=== PATIENT | male | born 1990 | race Caucasian/White ===

== ENCOUNTER 2018-01-23 12:12 | Emergency (ER) | payer SELFPAY ==
[2018-01-23] MEDS ORDERED: NS 1,000 ML IV ONE (12:36)
--- NOTE | 2018-01-23 12:36 | EDPHY ---
H & P Stated Complaint: meth ingestion Time Seen by Provider: 01/23/18 12:31 HPI/ROS: HPI: This is a 27-year-old male who presents with Chief Complaint: Meth ingestion Location: Body Quality: Meth ingestion Duration: Prior to arrival Signs and Symptoms: no shortness of breath at rest, no shortness of breath on exertion, no cough, no chest pain, no palpitations, no lower extremity edema, no wheezing, no orthopnea, no paroxysmal nocturnal dyspnea, no fever, no injury/ trauma, no hemoptysis, no carpal pedal spasms Timing: Acute Severity: Moderate Context: Patient was running from the police, when he opened up a bag of meth and ingested the medication. He reports that he did not eat the plastic bag or swallow the bag. He is unsure of how much methamphetamine he consumed. Police are at bedside with requesting medical clearance. Patient reports that he has no physical complaints at this time. Modifying Factors: None Comment: ROS: A comprehensive 10 system review of systems is otherwise negative aside from elements mentioned in the history of present illness. MEDICAL/SURGICAL/SOCIAL HISTORY: Medical history: Generally healthy. Does not take any regular medications. Surgical history: Denies Social history: Transient, methamphetamine use, tobacco user CONSTITUTIONAL: Intoxicated but cooperative, young adult white male, awake and alert, no obvious distress HEENT: Atraumatic and normocephalic, PERRL, EOMI. Nares patent; no rhinorrhea; no nasal mucosal edema. Tympanic membranes clear. Oropharynx clear, no exudate and moist pink mucosa. Airway patent. No lymphadenopathy. No meningismus. Cardiovascular: Normal S1/S2, tachycardia, regular rhythm, without murmur rub or gallop. PULMONARY/CHEST: Symmetrical and nontender. Clear to auscultation bilaterally. Good air movement. No accessory muscle usage. ABDOMEN: Soft, nondistended, nontender, no rebound, no guarding, no peritoneal signs, no masses or organomegaly. No CVAT. EXTREMITIES: 2/2 pulses, strength 5/5, no deformities, no clubbing, no cyanosis or edema. NEUROLOGICAL: no focal neuro deficits. GCS 15. Speech somewhat slurred. Follows 2 step commands. SKIN: Warm and dry, tattoos covering body, no erythema. no rash. Good capillary refill. Source: Patient, EMS Exam Limitations: No limitations - Personal History Current Tetanus/Diphtheria Vaccine: Unsure Current Tetanus Diphtheria and Acellular Pertussis (TDAP): Unsure - Medical/Surgical History Hx Asthma: No Hx Chronic Respiratory Disease: No Hx Diabetes: No Hx Cardiac Disease: No Hx Renal Disease: No Hx Cirrhosis: No Hx Alcoholism: No Hx HIV/AIDS: No Hx Splenectomy or Spleen Trauma: No Other PMH: no health history per pt. - Social History Smoking Status: Current every day smoker Constitutional: Initial Vital Signs Temperature (C) 36.4 C 01/23/18 12:22 Heart Rate 125 H 01/23/18 12:22 Respiratory Rate 18 01/23/18 12:22 Blood Pressure 125/71 H 01/23/18 12:22 O2 Sat (%) 90 L 01/23/18 12:22 O2 Delivery Mode Room Air Allergies/Adverse Reactions: No Known Allergies Allergy (Unverified 01/23/18 12:24) Home Medications: Medication Instructions Recorded NK [No Known Home Meds] 01/23/18 Medical Decision Making ED Course/Re-evaluation: Vital signs reviewed and show tachycardia and hypoxia. Placed on cardiac monitor technician. EKG, IV access and laboratory studies ordered Given 1 L normal saline 1300: EKG my read shows sinus tachycardia with a rate of 116 beats per minute with nonspecific ST changes and prolonged QT interval of 538 1336: Labs reviewed and grossly unremarkable. No signs of leukocytosis/anemia/ platelet dysfunction/MATTHIEU/electrolyte imbalance/rhabdomyolysis. Patient is medically cleared to be discharged to the hospital. This patient was seen under the supervision of my secondary supervising physician. I evaluated care for this patient independently. Discussed this patient with Dr. Preciado who did not see the patient. Differential Diagnosis: Altered mental status including but not limited to hypoglycemia, infectious process, electrolyte abnormality, head injury and intoxicants. - Data Points Laboratory Results: Laboratory Results 01/23/18 13:00 01/23/18 13:00 01/23/18 01/23/18 13:00 13:00 WBC 11.28 10^3/uL H 10^3/uL (3.80-9.50) RBC 5.24 10^6/uL 10^6/uL (4.40-6.38) Hgb 15.5 g/dL g/dL (13.7-17.5) Hct 46.0 % % (40.0-51.0) MCV 87.8 fL fL (81.5-99.8) MCH 29.6 pg pg (27.9-34.1) MCHC 33.7 g/dL g/dL (32.4-36.7) RDW 11.5 % % (11.5-15.2) Plt Count 267 10^3/uL 10^3/uL (150-400) MPV 10.7 fL fL (8.7-11.7) Neut % (Auto) 79.7 % H % (39.3-74.2) Lymph % (Auto) 11.9 % L % (15.0-45.0) [place] % (Auto) 7.1 % % (4.5-13.0) Eos % (Auto) 0.6 % % (0.6-7.6) Baso % (Auto) 0.3 % % (0.3-1.7) Nucleat RBC Rel Count 0.0 % % (0.0-0.2) Absolute Neuts (auto) 8.99 10^3/uL H 10^3/uL (1.70-6.50) Absolute Lymphs (auto) 1.34 10^3/uL 10^3/uL (1.00-3.00) Absolute Monos (auto) 0.80 10^3/uL 10^3/uL (0.30-0.80) Absolute Eos (auto) 0.07 10^3/uL 10^3/uL (0.03-0.40) Absolute Basos (auto) 0.03 10^3/uL 10^3/uL (0.02-0.10) Absolute Nucleated RBC 0.00 10^3/uL 10^3/uL (0-0.01) Immature Gran % 0.4 % % (0.0-1.1) Immature Gran # 0.05 10^3/uL 10^3/uL (0.00-0.10) Sodium 140 mEq/L mEq/L (135-145) Potassium 4.0 mEq/L mEq/L (3.5-5.2) Chloride 106 mEq/L mEq/L (97-110) Carbon Dioxide 23 mEq/l mEq/l (22-31) Anion Gap 11 mEq/L mEq/L (6-14) BUN 14 mg/dL mg/dL (7-23) Creatinine 1.0 mg/dL mg/dL (0.7-1.3) Estimated GFR > 60 Glucose 162 mg/dL H mg/dL (70-100) Calcium 9.9 mg/dL mg/dL (8.5-10.4) Total Bilirubin 0.8 mg/dL mg/dL (0.1-1.4) Conjugated Bilirubin 0.4 mg/dL mg/dL (0.0-0.5) Unconjugated Bilirubin 0.4 mg/dL mg/dL (0.0-1.1) AST 30 IU/L IU/L (17-59) ALT 18 IU/L L IU/L (21-72) Alkaline Phosphatase 67 IU/L IU/L (38-126) Creatine Kinase 247 IU/L H IU/L (0-224) CK-MB (CK-2) Fraction Pending CK-MB (CK-2) % Pending Creatine Kinase Interp Pending Total Protein 7.7 g/dL g/dL (6.3-8.2) Albumin 4.8 g/dL g/dL (3.5-5.0) Salicylates < 1.0 mg/dL L mg/dL (2.0-20.0) Acetaminophen < 10 mcg/mL L mcg/mL (10-30) Ethyl Alcohol < 10 mg/dL mg/dL (0-10) Medications Given: Discontinued Medications Sodium Chloride (Ns) 1,000 mls @ 0 mls/hr IV EDNOW ONE; Wide Open PRN Reason: Protocol Stop: 01/23/18 12:37 Last Admin: 01/23/18 13:30 Dose: 1,000 mls Departure - Departure Disposition: Law Enforcement/Court/Prison Clinical Impression: Methamphetamine use Condition: Good Instructions: Methamphetamine (By mouth) Additional Instructions: Patient is Medically Cleared to be discharged to the care of law enforcement. See [facility] for follow-up instructions and prescriptions. Referrals: [facility],. [Clinic] - As per Instructions
[2018-01-23 13:12] LABS: PLATELET COUNT 267 10^3/uL (150-400)
--- NOTE | 2018-01-23 13:13 | CPEKG ---
Test Reason : OPEN Blood Pressure : / mmHG Vent. Rate : 116 BPM Atrial Rate : 116 BPM P-R Int : 177 ms QRS Dur : 083 ms QT Int : 387 ms P-R-T Axes : 071 061 260 degrees QTc Int : 538 ms Sinus tachycardia Nonspecific repol abnormality, diffuse leads Prolonged QT interval Confirmed by Jose Enamorado ([id number]) on 01/23/2018 1:13:07 PM Referred By: Confirmed By:Jose Enamorado
[2018-01-23 13:31] LABS: CREATINE KINASE 247 IU/L (0-224)
[2018-01-23 14:04] VITALS: BP 143/94
== END 2018-01-23 14:03 ==
DX: F15.11 Other stimulant abuse, in remission (principal); E86.9 Volume depletion, unspecified; F17.200 Nicotine dependence, unspecified, uncomplicated
CPT/HCPCS: G0480